=== PATIENT | female | born 1995 | race African-American/Black ===

== ENCOUNTER 2023-04-27 11:42 | Emergency (ER) | payer OTHER, SELFPAY ==
[2023-04-27 11:55] VITALS: BP 151/76; BP 164/82; PULSE 83; PULSE 98; RESP 16; TEMP 36.9; O2SAT 99; BMI 29.5
--- NOTE | 2023-04-27 12:02 | ED.GENADULT ---
HPI - General Adult General Chief complaint: General Medical Stated complaint: HYPERGLYCEMIA, HIVES Time Seen by Provider: 04/27/23 13:32 Source: patient Mode of arrival: ambulatory Limitations: no limitations History of Present Illness HPI narrative: 28 yo [place] speaking female with history of DM and HTN presents to the ER for evaluation of elevated blood glucose in the setting of not being on her metformin or insulin since the of her child in December. She states her glucose was over 200 this morning and is was associated with blurry vision. She states she has been intermittently dizzy with increased thirst for several months. She also reports for the last 2 days she has had an itchy rash on her legs. She states there are small round bumps that turn dark after she itches them. She lives in a hotel with her son and spouse who do not have any lesions. MD complaint: hyperglycemia and LE rash Location: left, right and lower extremity Radiation: non-radiation Severity: moderate Quality: other (itchy) Pain Consistency: constant Relieving factors: none Exacerbating factors: none Associated symptoms: loss of appetite, malaise and other Treatments prior to arrival: none Related Data Previous Rx's Medication Instructions Recorded diphenhydramine HCl 25 mg capsule 25 mg PO TID PRN itching #20 caps 04/27/23 (Benadryl) hydrocortisone 2.5 % topical cream 1 appl topical BID #30 grams 04/27/23 metformin 1,000 mg tablet 1,000 mg PO BID #60 tabs 04/27/23 Allergies Allergy/AdvReac Type Severity Reaction Status Date / Time No Known Allergies Allergy Verified 04/27/23 12:05 Review of Systems Review of Systems: Yes all other systems are reviewed and are negative [facility] Social History Social History Advance Directives: No Physical Exam ED Vital Signs: Vital Signs - 24 hr 04/27/23 11:55 Temperature 98.4 F Pulse Rate 83 Respiratory Rate 16 Blood Pressure 151/76 H Pulse Oximetry 99 Oxygen Delivery Method Room Air BMI result Body Mass Index 29.5 Appearance: Alert. Oriented X3. No acute distress. Head: normocephalic, atraumatic. Eyes: Pupils equal, round and reactive to light. ENT: Pharynx normal. No tonsillar swelling or exudate. Neck: Normal inspection. Neck supple. CVS: Normal heart rate and rhythm. Pulses normal. Respiratory: No respiratory distress. Breath sounds normal. Abdomen: Soft and nontender. +BS x4 Skin: Skin warm and dry. Normal skin color. Normal skin turgor. Extremities: No lower extremity edema. Subcentimeter darkened circular lesions scattered on lower legs, 2 on right forearm. no surrounding erythema or warmth, no drainage Neuro/psych: Oriented X 3. No motor deficit. No sensory deficit. CN II-XII intact. Normal speech and cognition. Medical Decision Making Medical Decision Making [facility] Narrative: 28 yo [place] speaking female with hx DM and HTN presenting with hyperglycemia, not taking metformin or insulin in 4-5 months. Also has itchy rash on her legs x2 days. Needed to r/o DKA with her c/o dizziness and double vision, previously on insulin. No anion gap on labs. Glucose 206. Normal renal function. Will plan to start metformin 1000 mg BID and hold off on initiation of insulin. She was not on insulin prior to her . Her BP 150/70. Unknown baseline, unknown prior meds. Will defer initiation of antihypertensive agents to a PCP. Multiple references provided. 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 Stable for d/c home. Differential Diagnosis Differential Diagnoses: The differential diagnosis associated with the presentation includes diabetic hyperglycemia due to mediation noncompliance, DKA rash could be due to allergic dermatitis, insect bites, bed bugs, eczema, scabies Admission/Observation Consideration of admission/observation: Escalation of care including admission/observation considered poorly controlled DM with hyperglycemia, no outpatient resources considered observation Lab Data [facility] Lab Attestation statement: I reviewed the patient's lab results. leukopenia, hyperglycemia without anion gap 04/27/23 12:21 04/27/23 12:21 Labs: Lab Results 04/27/23 04/27/23 04/27/23 Range/Units 12:21 12:21 12:21 WBC 2.8 L (4.8-10.8) X10*3/uL RBC 5.66 H (4.20-5.50) X10*6/uL Hgb 12.1 (12.0-16.0) g/dl Hct 38.7 (37.0-47.0) % MCV 68.4 L (80.0-98.0) fL MCH 21.4 L (27.0-33.0) pg MCHC 31.3 (31.0-35.0) g/dl RDW 14.7 (11.0-16.0) % Plt Count 316 (160-400) X10*3/uL MPV 10.0 (9.4-12.3) fL Immature Gran % (Auto) 0.4 (0.0-0.4) % Neut % (Auto) 51.5 (45-73) % Lymph % (Auto) 35.2 (20-40) % Boundary % (Auto) 8.2 (2-11) % Eos % (Auto) 3.6 (0-4) % Baso % (Auto) 1.1 (0-2) % Lymph # (Auto) 1.0 L (1.2-4.9) X10*3/uL Boundary # (Auto) 0.2 (0.1-1.2) X10*3/uL Eos # (Auto) 0.1 (0.0-0.4) X10*3/uL Baso # (Auto) 0.0 (0.0-0.2) X10*3/uL Abs Immat Gran (auto) 0.01 (0.00-0.03) X10*3/uL Absolute Neuts (auto) 1.5 L (2.0-8.3) x10*3/uL Absolute Nucleated RBC 0.000 (0.0-0.012) X10*3/uL Nucleated RBC % (auto) 0.0 (0.0-0.2) /100WBC Sodium 138 (135-145) mmol/L Potassium 4.4 (3.3-5.1) mmol/L Chloride 106 (96-108) mmol/L Carbon Dioxide 25 (22-29) mmol/L Anion Gap 11 L (12-20) BUN 11 (9-16) mg/dL Creatinine 0.71 (0.5-1.4) mg/dL Estim Creat Clear Calc 127.5 Estimated GFR > 60 Random Glucose 206 H (60-115) mg/dL Estimat Average Glucose 166 mg/dL Hemoglobin A1c % 7.4 % Calcium 9.5 (8.4-10.2) mg/dL Magnesium 2.0 (1.6-2.6) mg/dL Total Bilirubin 0.5 (0.0-1.0) mg/dL Direct Bilirubin 0.2 (0.0-0.5) mg/dL AST 13 (5-31) U/L ALT 20 (0-31) U/L Alkaline Phosphatase 76 (39-117) U/L Total Protein 7.5 (6.5-8.0) g/dL Albumin 4.3 (3.5-5.0) g/dL Prescription Management I considered prescription management with: Other (metformin, insulin) Chronic Conditions Patient?s care impacted by: Diabetes and Hypertension Social Determinants Patient?s care significantly limited by Social Determinants of Health including: Inadequate housing, Low income, Unemployment and Other Social Determinant of Health Critical Care Time Critical Care Time Critical Care Time: No Discharge Plan Discharge Clinical Impression: Hyperglycemia due to type 2 diabetes mellitus Patient Disposition: Home, Self-Care Instructions: Type 2 Diabetes Management for Adults (ED) Additional Instructions: Take the prescribed medications as directed Follow up with a primary care provider as soon as possible If you develop new or worsening symptoms call 911 or come back to the ER for further evaluation. [place] los medicamentos recetados seg?n las indicaciones. Seguimiento con un proveedor de atenci?n primaria cain pronto cierra sea posible Si desarrolla s?ntomas nuevos o que empeoran, llame al 911 o regrese a la pipo de emergencias para joanna evaluaci?n adicional. Prescriptions: New metformin 1,000 mg tablet 1,000 mg PO BID Qty: 60 1RF hydrocortisone 2.5 % cream 1 appl topical BID Qty: 30 1RF diphenhydramine HCl [Benadryl] 25 mg capsule 25 mg PO TID PRN (Reason: itching) Qty: 20 0RF Referrals: [facility] [Provider Group] [facility] [Provider Group] [facility] [Provider Group] Interventions: ED Discharge Assessment Last Done: 04/27/23 13:49 Discharge Date/Time: 04/27/23 13:50 Print Language: Uzbek
[2023-04-27 12:25] LABS: MANUAL DIFF FLAG NO
[2023-04-27 12:31] LABS: Basophils Percent Auto 1.1 % (0-2); Eosinophils Absolute Auto 0.1 X10*3/uL (0.0-0.4); Eosinophils Percent Auto 3.6 % (0-4); Hematocrit 38.7 % (37.0-47.0); Hemoglobin 12.1 g/dl (12.0-16.0); Imm Gran Abs Auto 0.01 X10*3/uL (0.00-0.03); Imm Gran Pct Auto 0.4 % (0.0-0.4); Lymphocytes Percent Auto 35.2 % (20-40); Mean Corpuscular HGB Conc 31.3 g/dl (31.0-35.0); Mean Corpuscular Hemoglobin 21.4 pg (27.0-33.0); Mean Corpuscular Volume 68.4 fL (80.0-98.0); Monocytes Absolute Auto 0.2 X10*3/uL (0.1-1.2); Monocytes Percent Auto 8.2 % (2-11); Neutrophils Absolute Auto 1.5 x10*3/uL (2.0-8.3); Neutrophils Percent Auto 51.5 % (45-73); Platelet Count 316 X10*3/uL (160-400); Red Blood Count 5.66 X10*6/uL (4.20-5.50); Red Cell Distribution Width 14.7 % (11.0-16.0); White Blood Count 2.8 X10*3/uL (4.8-10.8)
[2023-04-27 12:37] LABS: Estimated Average Glucose 166 mg/dL; Hemoglobin A1c % 7.4 %
[2023-04-27 12:44] LABS: Alanine Aminotransferase 20 U/L (0-31); Albumin Level 4.3 g/dL (3.5-5.0); Alkaline Phosphatase 76 U/L (39-117); Anion Gap 11 (12-20); Aspartate Amino Transferase 13 U/L (5-31); Bilirubin Direct 0.2 mg/dL (0.0-0.5); Bilirubin Total 0.5 mg/dL (0.0-1.0); Blood Urea Nitrogen 11 mg/dL (9-16); Calcium 9.5 mg/dL (8.4-10.2); Carbon Dioxide 25 mmol/L (22-29); Chloride 106 mmol/L (96-108); Creatinine Clr Calc Pharmacy 127.5; Estimated Glomerular Filt Rate > 60; Glucose Random 206 mg/dL (60-115); Potassium 4.4 mmol/L (3.3-5.1); Sodium 138 mmol/L (135-145); Total Protein 7.5 g/dL (6.5-8.0)
--- NOTE | 2023-04-27 13:32 | PC.NURSE ---
rubia and elsy from [facility]
== END 2023-04-27 13:50 | disposition home or self-care (01) ==
PROVIDERS: Physician Assistant; Emergency Provider Emergency Medicine
DX: E11.65 Type 2 diabetes mellitus with hyperglycemia (principal); Z79.899 Other long term (current) drug therapy
CPT/HCPCS: 36415; 80048; 80076; 83036; 83735; 85025; 99282; 99283